=== PATIENT | male | born 1995 | race Hispanic/Latino ===

== ENCOUNTER 2024-04-19 08:46 | Emergency (ER) | payer OTHER ==
[~2024-04-19] VITALS: Ht 170.2 cm; Wt 99.0 kg
[2024-04-19] MEDS ORDERED: HYDROCODONE/ACETA 7.5/325 TAB PO ONE (09:00)
[2024-04-19] MEDS ORDERED: PENICILLIN V POTASSIUM 500 MG TAB PO ONE (09:00)
[2024-04-19] MEDS ORDERED: PENICILLIN V P500 MG PO (09:06)
[2024-04-19] MEDS ORDERED: HYDROCODON-ACE1 EA11 PO (09:06)
[2024-04-19 09:22] VITALS: BP 146/93
== END 2024-04-19 09:25 | disposition home or self-care (01) ==
LOC: ED 08:46
DX: K04.7 Periapical abscess without sinus (principal)
CPT/HCPCS: 99283; A9270